=== PATIENT | female | born 1960 | race Caucasian/White ===

== ENCOUNTER 2016-07-02 09:34 | Emergency (ER) | payer BC ==
--- NOTE | 2016-08-01 17:09 | ER ---
ADMIT: 07/02/2016 RM/LOC: ER [facility] MR#: [id number] [address] [id number] CARLI NICHOLE [address] [place] [address] Emergency Room Report SEX: F AGE: 55 : 1960 DATE: 07/02/2016 ADDENDUM: CHIEF COMPLAINT: Left lower abdominal pain. HISTORY OF PRESENT ILLNESS: This is a 55-year-old female who had sudden onset of left lower quadrant pain radiating into her back. Renal CT was done, there was question of a renal colic. The radiologist does not see an obvious stone, but does have some mild hydronephrosis on that left kidney. UA showed 2 red blood cells. CMP is normal except for bicarb of 20, her creatinine is slightly elevated at 1.2, her GFR is 52. CBC is normal except for white count of 10.7. She did receive Zofran, morphine, and Toradol in the emergency room along with fluids. She feels significantly better. I am sending her home. I sent her home with Zofran and [place] in case she continues to have pain. CLINICAL IMPRESSION: Renal colic. [employer] / Augustus Franks MD / modl JOB #: [id number] CC: Augustus Franks MD, Attending Physician Carrillo Ledbetter MD, Family Physician
== END 2016-07-02 13:00 | disposition home or self-care (01) ==
LOC: ER 09:34
DX: N13.2 Hydronephrosis with renal and ureteral calculous obstruction (principal); E03.9 Hypothyroidism, unspecified; Z79.899 Other long term (current) drug therapy